=== PATIENT | female | born 1985 | race Caucasian/White ===

== ENCOUNTER → 2021-06-02 | Outpatient (CLI) | payer BC ==
--- NOTE | 2021-06-02 18:38 | Diagnostic Imaging Report ---
HISTORY: Left foot pain. TECHNIQUE: Three views of the left foot. COMPARISON: None. FINDINGS: No acute fracture is seen in the left foot. There is mild hallux valgus, otherwise alignment appears normal. No cortical erosions are seen. There is mild diffuse soft tissue swelling about the left foot. No radiopaque foreign bodies are seen. IMPRESSION: Mild soft tissue swelling about the left foot with no acute osseous abnormality seen. Dictated by: Dictated on workstation # [id number]
== END ==
LOC: RAD 17:01
PROVIDERS: ATTEND Nurse Practitioner Family
DX: S99.922A Unspecified injury of left foot, initial encounter (principal); X58.XXXA Exposure to other specified factors, initial encounter
CPT/HCPCS: 73630

== ENCOUNTER → 2022-04-03 | Outpatient (CLI) | payer BC ==
--- NOTE | 2022-04-03 20:42 | Diagnostic Imaging Report ---
INDICATION: Lower back pain. COMPARISON: None available. TECHNIQUE: Three radiographs of the lumbar spine dated 04/03/2022. FINDINGS: Five lumbar-type vertebral bodies are present. Alignment of the lumbar spine is well maintained. Minimal anterior wedging of T12 is noted. Otherwise, vertebral body heights are well maintained. Moderate disc space height loss at L5/S1. Mild disc space height loss at L4/L5. No additional fracture or dislocation. No destructive osseous process. The sacroiliac joints are intact. IMPRESSION: Minimal anterior wedging of T12, of uncertain chronicity. Recommend correlation for focal pain at this location. Mild scattered degenerative changes, by far greatest at L5/S1 followed by L4/L5. Dictated by: Dictated on workstation # [id number]
== END ==
LOC: RAD 14:25
PROVIDERS: ATTEND Family Medicine
DX: M47.817 Spondylosis without myelopathy or radiculopathy, lumbosacral region (principal)
CPT/HCPCS: 72100

== ENCOUNTER → 2023-05-27 | Outpatient (CLI) | payer BC ==
[2023-05-27 09:17] VITALS: BP 118/74
--- NOTE | 2023-05-27 10:50 | Cardiology Stress Test Report ---
Stress Test Report Date of Procedure/Referring: Date of Procedure: May 27, 2023 PCP No,Local Physician Admitting Physician Admitting Physician: Attending Physician: See Pond MD Baseline Heart Rate: 59 Baseline Blood Pressure: Blood Pressure Systolic: 118 Blood Pressure Diastolic: 74 Baseline EKG: Baseline EKG: NSR Summary/Conclusion: Summary: In summary, the patient started exercising with a baseline heart rate, blood pressure and EKG mentioned above Patient was able to exercise for a total of 4.20 minutes on Francisco protocol, METs 6.2 Maximum heart rate 146 Maximum blood pressure 194/87 Stress EKG, Minimal nondiagnostic changes Recovery EKG , Return to baseline Conclusion: Patient was unable to exercise beyond 4 minutes and 20 seconds on standard Francisco protocol achieving maximal heart rate of 148 which is 80% of maximal expected heart rate Appropriate heart rate response to exercise with hypertensive response to exercise with peak blood pressure 194/78 Nondiagnostic EKG changes with exercise return to baseline during recovery SEE POND MD May 27, 2023 10:50
== END ==
LOC: CARD 07:32
PROVIDERS: ATTEND Internal Medicine Cardiovascular Disease
DX: I34.0 Nonrheumatic mitral (valve) insufficiency (principal); I10 Essential (primary) hypertension; I25.10 Atherosclerotic heart disease of native coronary artery without angina pectoris
CPT/HCPCS: 93017; C8929; 93306